=== PATIENT | female | born 1980 | race Caucasian/White ===

== ENCOUNTER 2019-04-25 09:54 | Outpatient (CLI) | payer BC ==
[2019-04-25 11:03] LABS: THYROID STIMULATING HORMONE < 0.08 uIU/mL (0.34-5.60)
== END 2019-04-25 09:55 | disposition home or self-care (01) ==
LOC: LAB 09:54
PROVIDERS: ATTEND Internal Medicine Endocrinology, Diabetes & Metabolism
DX: E03.9 Hypothyroidism, unspecified (principal); R63.5 Abnormal weight gain
CPT/HCPCS: 36415; 84439; 84443

== ENCOUNTER 2019-09-06 10:06 | Outpatient (CLI) | payer BC ==
[2019-09-06 10:55] LABS: THYROID STIMULATING HORMONE 2.93 uIU/mL (0.34-5.60)
[2019-09-06 10:57] LABS: FREE T4 (FREE THYROXINE) 0.92 ng/dL (0.58-1.64)
== END 2019-09-06 10:07 | disposition home or self-care (01) ==
LOC: LAB 10:06
PROVIDERS: ATTEND Internal Medicine Endocrinology, Diabetes & Metabolism
DX: E03.9 Hypothyroidism, unspecified (principal); R63.5 Abnormal weight gain
CPT/HCPCS: 36415; 84439; 84443